=== PATIENT | female | born 1960 | race Asian ===

== ENCOUNTER 2024-08-25 04:37 | Day surgery (SDC) | payer BC ==
[2024-08-19 14:31] VITALS: BMI 20.9
[2024-08-25] MEDS ORDERED: ONDANSETRON *ODT* 4 MG TABLET ONE (07:56)
[2024-08-25 08:34] VITALS: TEMP 97.6
[2024-08-25 09:03] VITALS: BP 117/65; PULSE 80; RESP 14
== END 2024-08-25 09:23 | disposition home or self-care (01) ==
LOC: JASU-ENDO 04:37
PROVIDERS: ATTEND Internal Medicine Gastroenterology
PROC: 0DBP8ZX Excision of Rectum, Via Natural or Artificial Opening Endoscopic, Diagnostic (ICD-10-PCS; principal; 2024-08-25 08:00)
DX: Z12.11 Encounter for screening for malignant neoplasm of colon (principal); D12.8 Benign neoplasm of rectum; K64.8 Other hemorrhoids; K63.89 Other specified diseases of intestine; Z86.0100 Personal history of colon polyps, unspecified
CPT/HCPCS: 88305-TC